=== PATIENT | male | born 2000 | race Caucasian/White ===

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

== ENCOUNTER 2023-06-27 10:23 | Outpatient (CLI) | payer BC, SELFPAY | END 2023-06-27 10:24 | disposition home or self-care (01) | LOC: LBO 10:24 | DX: E66.9 Obesity, unspecified (principal) | CPT/HCPCS: 36415; 80053; 80061; 82306; 85652; 82728; 83036; 84439; 84443; 85025 ==